=== PATIENT | female | born 1995 ===

== ENCOUNTER 2018-04-18 09:55 | Outpatient (CLI) | payer BC, SELFPAY ==
[2018-04-20 18:20] LABS: Infliximab 33 mcg/mL (<=5.0)
== END 2018-04-18 09:56 ==
PROVIDERS: PCP Nurse Practitioner Adult Health; Visit Provider Internal Medicine Gastroenterology
DX: K50.10 Crohn's disease of large intestine without complications (principal)
CPT/HCPCS: 36415; 82397